=== PATIENT | female | born 2000 | race Asian ===

== ENCOUNTER 2023-12-04 11:52 | Outpatient (CLI) | payer OTHER, BC, SELFPAY | END 2023-12-04 11:53 | disposition home or self-care (01) | PROVIDERS: PCP Physician Assistant Medical; Visit Provider Physician Assistant Medical | DX: R53.83 Other fatigue (principal); R10.9 Unspecified abdominal pain; F41.9 Anxiety disorder, unspecified | CPT/HCPCS: 80053; 82306; 82533; 82607; 83540; 83550; 84443 ==

== ENCOUNTER 2024-07-08 20:51 | Outpatient (CLI) | payer OTHER, BC, SELFPAY ==
--- NOTE | 2024-07-16 11:33 | W.PM.SLEEP ---
Sleep Study Details Details Interpreting Provider: Mami Date of Sleep Study: 07/08/24 Sleep Study Details: STUDY TYPE:? Hospital-based attended ? BMI:? 21.5 ORDERING PROVIDER:Rylan Atkins INDICATION:? Concerned about sleep apnea ? SLEEP SUMMARY:? 390 minutes total sleep time RESPIRATORY SUMMARY:? Mean oxygen awake 98 asleep 98 minimum 94 AHI 0.5 per CMS guideline 2.5 per rule 1A guideline. Supine REM AHI 1 PERIODIC LIMB MOVEMENTS OF SLEEP:? None CARDIAC:? Awake 67 asleep 60 no arrhythmias noted IMPRESSION:? Normal overnight polysomnogram RECOMMENDATION: If sleep disorder strongly suspected would repeat overnight polysomnogram with multiple sleep latency test (MSLT) to follow.
== END 2024-07-08 20:52 | disposition home or self-care (01) ==
LOC: SLEEP 20:51
PROVIDERS: PCP Physician Assistant Medical; Visit Provider Otolaryngology
DX: G47.10 Hypersomnia, unspecified (principal)
CPT/HCPCS: 95810